=== PATIENT | female | born 1965 | race Caucasian/White ===

== ENCOUNTER → 2017-09-25 | Outpatient (CLI) | payer OTHER ==
[~2017-09-25] VITALS: Ht 160 cm; Wt 81.6 kg
[~2017-09-25] MED LIST: Coumadin,Jantoven PO; HYZAAR 50-121 TABLET PO; Lovenox SC; MOTRIN800 MG PO; PERCOCET 5/31 TABLET PO; SUPER B COMPL400 MCG PO; VITAMIN D35000 UNIT PO; YAZ 28 TABLET1 EACH PO; ZITHROMAX Z-PA250 MG PO
== END | disposition home or self-care (01) ==
LOC: AMB 09:30
DX: Z12.11 Encounter for screening for malignant neoplasm of colon (principal); K64.4 Residual hemorrhoidal skin tags; K22.70 Barrett's esophagus without dysplasia; K44.9 Diaphragmatic hernia without obstruction or gangrene; K21.9 Gastro-esophageal reflux disease without esophagitis; I10 Essential (primary) hypertension; G35 Multiple sclerosis; Z86.711 Personal history of pulmonary embolism
CPT/HCPCS: 88305; 93005; J2250